=== PATIENT | female | born 2000 | race Caucasian/White ===

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

== ENCOUNTER 2019-05-14 18:57 | Emergency (ER) | payer OTHER ==
[2019-05-14 19:11] VITALS: BP 130/75; PULSE 96; TEMP 98.5; BMI 32.3
--- NOTE | 2019-05-14 20:11 | PDOC ---
History of Present Illness - General Chief Complaint: Pain Stated Complaint: FINGER INJURY Time Seen by Provider: 05/14/19 20:06 - History of Present Illness Initial Comments: 05/14/19 20:09 2-month gravid 18-year-old female with left thumb numbness x1 hour Past History - Past Medical History Allergies/Adverse Reactions: Allergies Allergy/AdvReac Type Severity Reaction Status Date / Time No Known Allergies Allergy Verified 01/01/18 01:32 COPD: No - Psycho Social/Smoking Cessation Hx Smoking History: Never smoked Have you smoked in the past 12 months: No Hx Alcohol Use: No Drug/Substance Use Hx: No Review of Systems - Review of Systems Neurological: Yes: See HPI *Physical Exam - Vital Signs Last Vital Signs Temp Pulse Resp BP Pulse Ox 98.5 F 96 H 19 130/75 98 05/14/19 19:08 05/14/19 19:08 05/14/19 19:08 05/14/19 19:08 05/14/19 19:08 - Physical Exam 05/14/19 20:10 Left thumb skin color and temperature normal range of motion is full and nonpainful no tenderness. 5 out of 5 strength bilateral upper extremities without gross sensorimotor deficits negative Spurling maneuver negative Tinel sign at the elbow and wrist neurovascular intact. Medical Decision Making - Medical Decision Making 05/14/19 20:10 Mostly likely a cervical radicular symptom. Recommended use of Tylenol for pain follow-up with [facility] Discharge - Discharge Information Problems reviewed: Yes Clinical Impression/Diagnosis: Numbness and tingling of left thumb Condition: Stable Disposition: HOME - Admission No - Follow up/Referral - Patient Discharge Instructions Additional Instructions: Tylenol for pain. Follow-up with your [facility] in 1 to 2 days without fail for further evaluation and treatment options or return to the emergency room should symptoms worsen. - Post Discharge Activity
== END 2019-05-14 20:14 | disposition home or self-care (01) ==
LOC: JERFT 18:57
DX: R20.0 Anesthesia of skin (principal)
CPT/HCPCS: 99282-25

== ENCOUNTER 2019-11-07 15:25 | Emergency (ER) | payer OTHER ==
[2019-11-07 15:34] VITALS: BMI 77.2
--- NOTE | 2019-11-07 15:35 | PDOC ---
Rapid Medical Evaluation Time Seen by Provider: 11/07/19 15:30 Medical Evaluation: Allergies Allergy/AdvReac Type Severity Reaction Status Date / Time No Known Allergies Allergy Verified 01/01/18 01:32 11/07/19 15:31 CC: urinary dribbling x 1 month, had u/s done 2 weeks ago and amniotic fluid intact Exam: lower abd tenderness , vss Plan: ua u cx, then to l&d Discharge Disposition - Diagnosis Urinary frequency - Referrals - Patient Instructions - Post Discharge Activity
[2019-11-07 18:07] LABS: EPI CELLS >36 /uL (0-25.1); HYALINE CASTS 6 /uL (0-3.1); URINE APPEARANCE CLOUDY; URINE BACTERIA 4727 /uL (0-1359); URINE BILIRUBIN NEGATIVE (NEGATIVE); URINE COLOR YELLOW; URINE GLUCOSE (UA) NEGATIVE (NEGATIVE); URINE KETONE NEGATIVE (NEGATIVE); URINE LEUK ESTERASE TRACE (NEGATIVE); URINE NITRITE NEGATIVE (NEGATIVE); URINE PROTEIN NEGATIVE (NEGATIVE); URINE RBC 7 /uL (0-23.9); URINE UROBILINOGEN 0.2 mg/dL (0.2-1.0); URINE WBC 73 /uL (0-25.8)
--- NOTE | 2019-11-07 19:08 | PD.OB.PROG ---
Past Medical History - Primary Care Physician PCP:: Nunu Santa Documenting Provider Type: Attending - Admission Chief Complaint: 18 yrs edc by dates 12/20/19, edc by sono 12/16/19 34 weeks gestation c/o urinary symptoms , severe for past 2 days . C/O burning urination, pain , while urinating . frequent urination. n/o c/o fever, or vomiting, nausea sometimes History of Present Illness: pnc at 1, , rand jones . 05/12/19 pane O Neg , Hbsag neg, Hep c nr, rubella immune, varicella immune, measles immune, hiv neg , sickle neg GC neg, CT pos , Uc/s no growth pt was treated for Chlamydia , Repeat test as per pt was neg US 09/27/19 28.4 wks, vx, marshall 14.3, efw 2'9" (19 %tile) , reviewed . edc assigned 12/16/19 . 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 Weeks Gestation by Dates: 34 ...EDC by Dates: 12/20/19 ...EDC by Sono: 12/16/19 (34.4 weeks by US ) Heme/Onc: Denies/None Infectious Disease: Denies/None, STD's (h/o chlamydia pos in treated) Psych: Denies/None Musculoskeletal: Denies/None Rheumatology: Denies/None ENT: Denies/None Endocrine: Denies/None Dermatology: Denies/None - Past Surgical History Additional Surgical History: Rt knee surgery at age 11yrs - Smoking History Smoking history: Never smoked Have you smoked in the past 12 months: No - Alcohol/Substance Use Hx Alcohol Use: No History of Substance Use: reports: Marijuana (stopped when she knew she was .) - Social History History of Recent Travel: No Physical Exam - Obstetrical Vital Signs: Vital Signs Temperature 98.4 F 11/07/19 15:32 Pulse Rate 94 H 11/07/19 15:32 Respiratory Rate 18 11/07/19 15:32 Blood Pressure 140/74 11/07/19 15:32 O2 Sat by Pulse Oximetry (%) 98 11/07/19 15:32 Constitutional: Yes: Well Nourished, No Distress Eyes: Yes: WNL HENT: Yes: WNL Neck: Yes: WNL Cardiovascular: Yes: WNL Lungs: Clear to auscultation Breast(s): Yes: Other (not examined) - Abdominal Exam/OB Fundal Height: 34 (suprapubic tenderness, no cva tenderness) Number of Fetuses: Single Presentation: Vertex Contractions: No Heart Rate (range): 130 Heart Rate Location: Midline Category: I Accelerations: Non-Uniform Decelerations: None - Vaginal Exam/OB Vaginal Exam Deferred: Yes Vaginal Bleeding: No Dilatation (cm): close Effacement (%): unefface Amniotic Membrane Status: Intact Presentation: Vertex/Position Station: -3 - Physical Exam Musculoskeletal: Yes: WNL Extremities: Yes: WNL. No: Calf Tenderness Edema: Yes Edema: LLE: 1+, RLE: 1+ Integumentary: Yes: Tattoos Deep Tendon Reflex Grade: Normal +2 Psychiatric: Yes: WNL - Labs Lab Results: Laboratory Tests 11/07/19 15:55 Urine Color Yellow Urine Appearance Cloudy Urine pH 8.[address] 1.016 Urine Protein Negative Urine Glucose (UA) Negative Urine Ketones Negative Urine Blood Negative Urine Nitrite Negative Urine Bilirubin Negative Urine Urobilinogen 0.2 Ur Leukocyte Esterase Trace Urine WBC (Auto) 73 Urine RBC (Auto) 7 Urine Casts (Auto) 6 U Epithel Cells (Auto) >36 Urine Bacteria (Auto) 4727 Problem List - Problems (1) with 34 completed weeks gestation Code(s): Z3A.34 - 34 WEEKS GESTATION OF (2) UTI (urinary tract infection) Code(s): N39.0 - URINARY TRACT INFECTION, SITE NOT SPECIFIED Assessment/Plan 19 yrs 34 weeks GA, symptomatic with UTI , U/A clean catch suggestive of UTI Plan IVPB ancef 2 gm . urine c/s sent Po keflex 500 mg bid x 7days po plenty fluids keep f/u appt in the clinic next wk, f/u on uc/s
[2019-11-07] MEDS ORDERED: CEFAZOLIN 2 GM/D5W 2 GM/50 ML ML IVPB ONE (19:33)
[2019-11-07 20:31] VITALS: BP 119/68; PULSE 87; TEMP 97.7
== END 2019-11-07 20:45 | disposition home or self-care (01) ==
LOC: JER 15:25
PROC: 3E033GC Introduction of Other Therapeutic Substance into Peripheral Vein, Percutaneous Approach (ICD-10-PCS; principal; 2019-11-07)
DX: R35.0 Frequency of micturition (principal)
CPT/HCPCS: 81003; 87086; 99284-25

== ENCOUNTER 2019-12-17 18:05 | Inpatient (IN) | payer OTHER ==
[2019-12-17 20:50] LABS: BASO % 0.1 % (0-2.0); EOS % 0.9 % (0-4.5); HEMATOCRIT 39.1 % (32.4-45.2); HEMOGLOBIN 13.1 GM/dL (10.7-15.3); LYMPH % 17.7 % (8-40); MCH 30.9 pg (25.7-33.7); MCHC 33.5 g/dl (32.0-36.0); MEAN CELL VOLUME 92.2 fl (80-96); MONO % 6.5 % (3.8-10.2); NEUT % 74.8 % (42.8-82.8); PLATELET COUNT 256 K/MM3 (134-434); RBC 4.24 M/mm3 (3.60-5.2); WHITE BLOOD COUNT 11.4 K/mm3 (4.0-10.0)
[2019-12-17 21:00] LABS: INR 0.93 (0.83-1.09)
[2019-12-17 21:03] LABS: ACTIVATED PTT 31.7 SECONDS (25.2-36.5)
[2019-12-17 21:05] LABS: COCAINE, UR NEGATIVE ng/ml (CUTOFF=300); OPIATES, URI NEGATIVE ng/ml (CUTOFF=300); PHENCYCLIDINE,URINE NEGATIVE ng/ml (CUTOFF=25); URINE BARBITURATES NEGATIVE ng/ml (CUTOFF=200)
[2019-12-17 21:08] VITALS: BMI 35.8
[2019-12-17 21:10] LABS: METHADONE, UR NEGATIVE ng/ml (CUTOFF=300); URINE AMPHETAMINES NEGATIVE ng/ml (CUTOFF=500); URINE BENZODIAZEPINES NEGATIVE ng/ml (CUTOFF=200)
[2019-12-17 21:18] LABS: CREATININE 0.6 mg/dL (0.55-1.3); POTASSIUM 4.2 mmol/L (3.5-5.1)
[2019-12-17] MEDS ORDERED: OXYTOCIN 30 UNITS in 0.9% NS 30 UNIT/500 ML INFUS.BAG IVPB SCH (21:30)
[2019-12-17] MEDS ORDERED: PROMETHAZINE HCL 25 MG/1 ML VIAL IVPB ONE (21:30)
[2019-12-17] MEDS ORDERED: DEXTROSE 5%-LACTATED RINGERS 1,000 ML IV SCH (21:30)
[2019-12-17] MEDS ORDERED: BUTORPHANOL TARTRATE 1 MG/ML VIAL IVPB ONE (21:30)
[2019-12-17] MEDS ORDERED: OXYTOCIN 30 UNITS in 0.9% NS 30 UNIT/500 ML INFUS.BAG IVPB ONE (21:49)
[2019-12-18] MEDS ORDERED: ACETAMINOPHEN 325 MG TABLET (FP) PO ONE (02:00)
[2019-12-18] MEDS ORDERED: FENTANYL/BUPIVACAINE/NS/PF - PCEA - 50 ML DISP.SYRIN EP ONE ×4 (02:06→13:42)
[2019-12-18] MEDS ORDERED: PCA PUMP NR ONE (02:07)
[2019-12-18] MEDS ORDERED: BUPIVACAINE HCL/PF 0.25% (2.5MG/ML) 10 ML VIAL ONE (02:14)
[2019-12-18] MEDS ORDERED: NALOXONE HCL 0.4 MG/ML VIAL IVPUSH PRN (02:53)
[2019-12-18] MEDS ORDERED: FENTANYL/BUPIVACAINE/NS/PF - PCEA - 50 ML DISP.SYRIN EP SCH (03:00)
[2019-12-18] MEDS ORDERED: ELECTROLYTE-148 SOLN 1,000 ML IV SCH (06:00)
[2019-12-18 07:12] LABS: POC NITRAZINE NEG
--- NOTE | 2019-12-18 08:10 | HP ---
Past Medical History - Primary Care Physician PCP:: Willard Cheney - Admission Chief Complaint: 40 weeks, rom, labor History of Present Illness: 19 yo f 40.1 weeks, with leaking fluid since 530 pm 10/16 . mild irregular contraction, no fever, no bleeding, cx 2 cm , 80 vx -2 mr, fhr cat 1, irregular contraction History Source: Patient Limitations to Obtaining History: No Limitations - Past Medical History ...: 1 ...Para: 0 ...Term: 0 ...: 0 ...Spon : 0 ...Induced : 0 ...Living Children: 0 ...Multiple Gestation: 0 ...LMP: 03/11/19 ... Weeks Gestation by Dates: 40.1 ...EDC by Dates: 12/16/19 ...EDC by Sono: 12/16/19 - Past Surgical History Hx Myomectomy: No Hx Transabdominal Cerclage: No - Smoking History Smoking history: Never smoked Have you smoked in the past 12 months: No - Alcohol/Substance Use Hx Alcohol Use: No History of Substance Use: reports: Marijuana (stopped when she knew she was .) - Social History History of Recent Travel: No Home Medications - Allergies Allergies/Adverse Reactions: Allergies Allergy/AdvReac Type Severity Reaction Status Date / Time No Known Allergies Allergy Verified 12/17/19 20:35 - Home Medications Home Medications: Ambulatory Orders Pnv No.95/Ferrous Fum/Folic AC [ Formula] 1 each PO DAILY 12/16/19 Review of Systems - Review of Systems Constitutional: reports: No Symptoms Eyes: reports: No Symptoms HENT: reports: No Symptoms Neck: reports: No Symptoms Cardiovascular: reports: No Symptoms Respiratory: reports: No Symptoms Gastrointestinal: reports: No Symptoms Genitourinary: reports: No Symptoms Breasts: reports: No Symptoms Reported Musculoskeletal: reports: No Symptoms Integumentary: reports: No Symptoms Neurological: reports: No Symptoms Endocrine: reports: No Symptoms Hematology/Lymphatic: reports: No Symptoms Psychiatric: reports: No Symptoms Physical Exam - Maternity Vital Signs: Vital Signs Temperature 98.1 F 12/18/19 07:00 Pulse Rate 88 12/18/19 07:45 Respiratory Rate 16 12/18/19 07:45 Blood Pressure 120/73 12/18/19 07:45 O2 Sat by Pulse Oximetry (%) 100 12/18/19 07:45 Constitutional: Yes: Well Nourished, No Distress, Calm Eyes: Yes: WNL, Conjunctiva Clear, EOM Intact HENT: Yes: WNL, Atraumatic, Normocephalic Neck: Yes: WNL, Supple, Trachea Midline Cardiovascular: Yes: WNL, Regular Rate and Rhythm Breast(s): Yes: WNL - Abdominal Exam/OB Fundal Height: 40 Number of Fetuses: Single Presentation: Vertex Contractions: Yes Regularity: Irregular Intensity: Mild/Mod Monitor Mode: External Heart Rate Location: [facility] Category: I Accelerations: Non-Uniform Decelerations: None - Vaginal Exam/OB Vaginal Bleeding: No Speculum Exam: No Dilatation (cm): 2 Effacement (%): 80 Amniotic Membrane Status: Leaking Nitrazine Test: Positive Presentation: Vertex/Position Station: -2 - Physical Exam Musculoskeletal: Yes: WNL Extremities: Yes: WNL Edema: Yes Edema: LLE: Trace, RLE: Trace Deep Tendon Reflex Grade: Normal +2 Psychiatric: Yes: WNL - Labs Lab Results: CBC, BMP 12/17/19 20:05 12/17/19 20:05 Hemorrhage Risk Assessment - Risk Factors Medium Risk Factors: Yes: None High Risk Factors: Yes: None Risk Score: 1 Risk Level: Medium Risk Problem List - Problems (1) Post term over 40 weeks Code(s): O48.0 - POST-TERM (2) Amniotic fluid leaking Code(s): O42.90 - TAQUERIA ROM, 7TH0 BETW RUPT & ONST LABR, UNSP WEEKS OF GEST Assessment/Plan admit, GBS negative FHM , pitocin discussed , pain management
--- NOTE | 2019-12-18 08:12 | PN ---
Progress Note (short form) - Note Progress Note: cd 5 cm 80 vx -1, fhr cat [address] Last Vital Signs Temp Pulse Resp BP Pulse Ox 98.1 F 88 16 120/73 100 12/18/19 07:00 12/18/19 07:45 12/18/19 07:45 12/18/19 07:45 12/18/19 07:45 plan start antibiotics 18 hrs post rupture cont , pitocin expect vaginal delivery Problem List - Problems (1) Post term over 40 weeks Code(s): O48.0 - POST-TERM (2) Amniotic fluid leaking Code(s): O42.90 - TAQUERIA ROM, 7TH0 BETW RUPT & ONST LABR, UNSP WEEKS OF GEST
[2019-12-18] MEDS ORDERED: AMPICILLIN - 2 GM in SODIUM CHLORIDE 100 ML IVPB ONE (13:00)
[2019-12-18] MEDS ORDERED: AMPICILLIN SODIUM 2 GM VIAL ONE (13:19)
[2019-12-18] MEDS ORDERED: LIDOCAINE HCL 1% PRESERVATIVE FREE - 30ML VIAL ONE (15:06)
[2019-12-18] MEDS ORDERED: OXYTOCIN 20 UNITS in 0.9% NS 20 UNIT/1,000 ML INFUS.BAG IV ONE (15:06)
[2019-12-18] MEDS ORDERED: OXYTOCIN 20 UNITS in 0.9% NS 20 UNIT/1,000 ML INFUS.BAG IV SCH (16:25)
[2019-12-18] MEDS ORDERED: IBUPROFEN 600 MG TABLET (FP) PO ONE (16:35)
[2019-12-18] MEDS ORDERED: ACETAMINOPHEN 325 MG TABLET (FP) ONE (16:35)
[2019-12-18] MEDS: ACETAMINOPHEN 325 MG TABLET (FP) PO PRN ×2 (16:40→22:50)
[2019-12-18] MEDS: IBUPROFEN 600 MG TABLET (FP) PO PRN ×2 (16:40→22:50)
[2019-12-18 17:09] LABS: CORD BASE EXCESS -9.3 mmol/L (0-2); CORD PCO2 40.2 mmHg (30-78); CORD pH 7.252 (7.14-7.44)
[2019-12-18 17:10] LABS: CORD HCO3 17.3 mmHg (20-29)
[2019-12-18 17:11] LABS: CORD pH 7.095 (7.14-7.44)
[2019-12-18 17:12] LABS: CORD BASE EXCESS -12.1 mmol/L (0-2); CORD HCO3 18.6 mmHg (20-29); CORD PCO2 62.1 mmHg (30-78)
[2019-12-18] MEDS: AMPICILLIN - 1 GM in SODIUM CHLORIDE 100 ML IVPB SCH ×2 (17:39→22:49)
[2019-12-18] MEDS ORDERED: WITCH HAZEL 50% (TUCKS) 40 PAD/JAR PAD TP PRN (18:00)
[2019-12-18] MEDS ORDERED: BENZOCAINE 20% 57 GM BOTTLE TP PRN (18:00)
[2019-12-18] MEDS ORDERED: BENZOCAINE 28 GM HEMORRHOIDAL OINTMENT TP PRN (18:00)
[2019-12-18] MEDS ORDERED: METHYLERGONOVINE MALEATE 0.2 MG/1 ML AMP IM PRN (18:00)
[2019-12-18] MEDS ORDERED: BISACODYL 10 MG SUPP.RECT RC PRN (18:00)
[2019-12-19] MEDS: ACETAMINOPHEN 325 MG TABLET (FP) PO PRN ×2 (06:13→17:23)
[2019-12-19] MEDS: IBUPROFEN 600 MG TABLET (FP) PO PRN ×2 (06:14→17:24)
--- NOTE | 2019-12-19 07:37 | PN ---
Post Progress Note - Subjective Subjective: Ambulating, tolerating PO lochia decreased, breast feeding, voiding Post Day: 1 Type of Delivery: Vital Signs: Vital Signs Temperature 97.7 F 12/19/19 06:05 Pulse Rate 93 H 12/19/19 06:05 Respiratory Rate 20 12/19/19 06:05 Blood Pressure 115/70 12/19/19 06:05 O2 Sat by Pulse Oximetry (%) 99 12/18/19 18:45 Uterus: Yes: Fundus Firm Abdomen/GI: Yes: Abdomen soft Lochia: Yes: Serosa Lochia, amount: Moderate Extremities: Yes: Calves non-tender Perineum: Yes: Intact Activity: Ambulating - Labs Labs: CBC WBC 11.4 K/mm3 (4.0-10.0) H 12/17/19 20:05 RBC 4.24 M/mm3 (3.60-5.2) 12/17/19 20:05 Hgb 13.1 GM/dL (10.7-15.3) 12/17/19 20:05 Hct 39.1 % (32.4-45.2) 12/17/19 20:05 MCV 92.2 fl (80-96) 12/17/19 20:05 MCH 30.9 pg (25.7-33.7) 12/17/19 20:05 MCHC 33.5 g/dl (32.0-36.0) 12/17/19 20:05 RDW 14.0 % (11.6-15.6) 12/17/19 20:05 Plt Count 256 K/MM3 (134-434) 12/17/19 20:05 MPV 8.0 fl (7.5-11.1) 12/17/19 20:05 Absolute Neuts (auto) 8.5 K/mm3 (1.5-8.0) H 12/17/19 20:05 Neutrophils % 74.8 % (42.8-82.8) D 12/17/19 20:05 Lymphocytes % 17.7 % (8-40) D 12/17/19 20:05 Monocytes % 6.5 % (3.8-10.2) 12/17/19 20:05 Eosinophils % 0.9 % (0-4.5) 08/16/20 20:05 Basophils % 0.1 % (0-2.0) 12/17/19 20:05 Nucleated RBC % 0 % (0-0) 12/17/19 20:05 Assessment/Plan 19 y/o female on PPD # 1 S/P VD yesterday evening -Continue PP/post-op care -Anticipate D/C home tomorrow
--- NOTE | 2019-12-19 07:54 | PN ---
Delivery - Delivery Vaginal Delivery: Spontaneous (cx full ,head delivered GRAHAM , cord around neck once reduced , ant and post. shoulder with no difficulty, live baby girl 9/9 placenta complete, spontaneous, no laceration, EBL 500 cc , no complication) Type of Anesthesia: Epidural Episiotomy/Laceration: None EBL (cc): 500 Delivery, Single - Stages of Labor Date 1st Stage Initiatied: 12/18/19 Time 1st Stage Initiated: 02:40 Date 2nd Stage Initiated: 12/18/19 Time 2nd Stage Initiated: 14:55 Date of Delivery: 12/18/19 Time of Delivery: 15:48 Time Placenta Delivered: 15:55 - Condition of Infant [employer] Supervisor/Discount Clerk Present: No Infant Gender: Female Weight: 7 lb 5 oz Position: Left, OA Total Hours ROM (Hrs/Mins): 22:48 - 1 Minute Total Score: 9 5 Minutes Total Score: 9 - [place] Feeding Plan Initial Plan: Elected not to breastfeed exclusively throughout hospitalization
[2019-12-19] MEDS ORDERED: FERROUS SO4 325 MG TABLET (FP) PO SCH (08:00)
[2019-12-19] MEDS ORDERED: DIPHTH,PERTUSS(ACELL),TET 0.5 ML DISP.SYRIN IM ONE (10:00)
[2019-12-19] MEDS ORDERED: PRENATAL VITAMINS W/ FOLIC ACID TABLET (FP) PO SCH (10:00)
[2019-12-19] MEDS ORDERED: METHYLERGONOVINE MALEATE 0.2 MG/1 ML AMP IM PRN (10:18)
[2019-12-19] MEDS ORDERED: WITCH HAZEL 50% (TUCKS) 40 PAD/JAR PAD TP PRN (10:18)
[2019-12-19] MEDS ORDERED: BENZOCAINE 20% 57 GM BOTTLE TP PRN ×2 (10:18→10:26)
[2019-12-19] MEDS ORDERED: BISACODYL 10 MG SUPP.RECT RC PRN (10:18)
[2019-12-19] MEDS ORDERED: BENZOCAINE 28 GM HEMORRHOIDAL OINTMENT TP PRN (10:18)
[2019-12-19 11:22] LABS: BASO % 0.4 % (0-2.0); EOS % 1.1 % (0-4.5); HEMATOCRIT 33.1 % (32.4-45.2); MCH 30.6 pg (25.7-33.7); MCHC 33.3 g/dl (32.0-36.0); MEAN CELL VOLUME 91.9 fl (80-96); MEAN PLT VOLUME 7.6 fl (7.5-11.1); MONO % 6.1 % (3.8-10.2); NEUT % 79.4 % (42.8-82.8); PLATELET COUNT 236 K/MM3 (134-434); RDW 13.7 % (11.6-15.6); WHITE BLOOD COUNT 15.5 K/mm3 (4.0-10.0)
[2019-12-19] MEDS ORDERED: SENNOSIDES/DOCUSATE COMBO (SENNA PLUS) TABLET (UD) PO PRN (18:00)
[2019-12-20] MEDS: FERROUS SO4 325 MG TABLET (FP) PO SCH ×2 (00:34→11:22)
[2019-12-20] MEDS: ACETAMINOPHEN 325 MG TABLET (FP) PO PRN (00:34)
[2019-12-20] MEDS: IBUPROFEN 600 MG TABLET (FP) PO PRN (00:35)
--- NOTE | 2019-12-20 08:03 | DS ---
Physical Exam-INVENTORY ANALYST Vital Signs: Vital Signs Temperature 99 F 12/19/19 22:00 Pulse Rate 100 H 12/19/19 22:00 Respiratory Rate 20 12/19/19 22:00 Blood Pressure 134/76 12/19/19 22:00 O2 Sat by Pulse Oximetry (%) 99 12/18/19 18:45 Constitutional: Yes: Well Nourished Eyes: Yes: WNL HENT: Yes: WNL Neck: Yes: WNL Cardiovascular: Yes: WNL Respiratory: Yes: WNL Gastrointestinal: Yes: WNL ....Post : Yes: Uterus firm, Uterus non-tender, Moderate lochia rubra (perineum intact) Breast(s): Yes: WNL (not engorged breast feeding) Musculoskeletal: Yes: WNL Extremities: Yes: WNL. No: Calf Tenderness Edema: LLE: Trace, RLE: Trace Integumentary: Yes: Tattoos Neurological: Yes: WNL, Alert, Oriented ...Motor Strength: WNL Psychiatric: Yes: WNL, Alert, Oriented Labs: CBC, BMP 12/19/19 11:03 12/17/19 20:05 Delivery - Delivery Vaginal Delivery: Spontaneous (cx full ,head delivered GRAHAM , cord around neck once reduced , ant and post. shoulder with no difficulty, live baby girl 9/9 placenta complete, spontaneous, no laceration, EBL 500 cc , no complication) Type of Anesthesia: Epidural Episiotomy/Laceration: None EBL (cc): 500 Delivery, Single - Stages of Labor Date 1st Stage Initiatied: 12/18/19 Time 1st Stage Initiated: 02:40 Date 2nd Stage Initiated: 12/18/19 Time 2nd Stage Initiated: 14:55 Date of Delivery: 12/18/19 Time of Delivery: 15:48 Time Placenta Delivered: 15:55 - Condition of Intake Counselor/Pediatric Occupational Therapist Present: No Gender: Female Weight: 7 lb 5 oz Position: Left, OA Total Hours ROM (Hrs/Mins): 22:48 - 1 Minute Total Score: 9 5 Minutes Total Score: 9 - Feeding Plan Initial Plan: Elected not to breastfeed exclusively throughout hospitalization Remarks - Remarks Remarks: pp course uneventful discharge today Discharge Summary Problems reviewed: Yes Reason For Visit: ADMIT EARLY LABOR Current Active Problems Amniotic fluid leaking (Acute) Normal spontaneous vaginal delivery (Acute) Post term over 40 weeks (Acute) Condition: Stable - Instructions Diet, Activity, Other Instructions: Discharge Instructions * Out of Bed * * Regular Diet * Morena Care * Avoid sex for 6 weeks * RTC 3 weeks for pp visit If you experience excessive bleeding or fever over 101 degrees, call doctor, the clinic or go to the Emergency Room. Referrals: Willard Cheney MD [Staff Physician] - Disposition: HOME - Home Medications Comprehensive Discharge Medication List: Ambulatory Orders Pnv No.95/Ferrous Fum/Folic AC [ Formula Tablet] 1 each PO DAILY 12/16/19 Acetaminophen [Tylenol .Regular Strength -] 650 mg PO Q3H PRN tablet 12/20/19 Acetaminophen [Tylenol .Regular Strength -] 650 mg PO Q3H PRN tablet 12/20/19 Benzocaine [Americaine 20% [place] -] 1 spray TP PRN PRN bottle 12/20/19 Ferrous Sulfate [Feosol] 325 mg PO DAILY tab 12/20/19 Ferrous Sulfate [Feosol] 325 mg PO DAILY@0800 tab 12/20/19 Ibuprofen [Motrin -] 200 mg PO Q4H PRN tablet 12/20/19 Ibuprofen [Motrin -] 200 mg PO Q4H PRN tablet 12/20/19 Vitamins (Sjr) - 1 tab PO DAILY tablet 12/20/19 Vitamins (Sjr) - 1 tab PO DAILY #0 tablet 12/20/19
[2019-12-20] MEDS ORDERED: PRENATAL VITAMINS W/ FOLIC ACID TABLET (FP) PO SCH (10:00)
[2019-12-20 11:42] VITALS: BP 125/80; PULSE 90; TEMP 98
[2019-12-20] MEDS ORDERED: SENNOSIDES/DOCUSATE COMBO (SENNA PLUS) TABLET (UD) PO PRN (22:00)
== END 2019-12-20 12:00 | disposition home or self-care (01) | DRG 560 ==
LOC: JDEL 18:05 → JLDR 18:43 → J3W 12-18 19:34
PROVIDERS: ADMIT Obstetrics & Gynecology; ATTEND Obstetrics & Gynecology
PROC: 10E0XZZ Delivery of Products of Conception, External Approach (ICD-10-PCS; principal; 2019-12-18)
DX: O48.0 Post-term pregnancy (principal); O42.02 Full-term premature rupture of membranes, onset of labor within 24 hours of rupture; Z3A.40 40 weeks gestation of pregnancy; Z37.0 Single live birth; O69.81X0 Labor and delivery complicated by cord around neck, without compression, not applicable or unspecified; F12.11 Cannabis abuse, in remission
CPT/HCPCS: 36415; 36600; 59409; 80048; 80307; 82803; 83986-QW; 85025; 85461; 85610; 85730; 86780; 86850; 86870; 86900; 86901; 86902; 86999; 90715; U0003

== ENCOUNTER 2021-02-17 20:48 | Emergency (ER) | payer BC, OTHER ==
[2021-02-17 20:55] VITALS: BP 128/86; PULSE 89; TEMP 98.9; BMI 31.1
[2021-02-17 22:15] LABS: BASO % 0.8 % (0-2.0); EOS % 2.1 % (0-4.5); HEMOGLOBIN 13.5 GM/dL (10.7-15.3); MCH 30.5 pg (25.7-33.7); MCHC 34.6 g/dl (32.0-36.0); MEAN CELL VOLUME 88.2 fl (80-96); MONO % 6.1 % (3.8-10.2); PLATELET COUNT 309 10^3/uL (134-434); RBC 4.42 M/mm3 (3.60-5.2); RDW 13.4 % (11.6-15.6); WHITE BLOOD COUNT 9.9 K/mm3 (4.0-10.0)
[2021-02-17 22:30] LABS: CHLORIDE 108 mmol/L (98-107); SODIUM 141 mmol/L (136-145)
[2021-02-17 22:31] LABS: ANION GAP 8 MMOL/L (8-16); BLOOD UREA NITROGEN 15.8 mg/dL (7-18); CALCIUM 9.4 mg/dL (8.5-10.1); CO2 24 mmol/L (21-32)
[2021-02-17 22:32] LABS: GLUCOSE,RANDOM 84 mg/dL (74-106)
[2021-02-17 22:35] LABS: CREATININE 0.7 mg/dL (0.55-1.3)
[2021-02-17] MEDS ORDERED: ACETAMINOPHEN 500 MG TABLET (FP) PO ONE (23:44)
[2021-02-17] MEDS ORDERED: ACETAMINOPHEN 500 MG TABLET (FP) ONE (23:51)
== END 2021-02-18 00:31 | disposition home or self-care (01) ==
LOC: JERFT 20:48
DX: R51.9 Headache, unspecified (principal)
CPT/HCPCS: 36415; 70496-TC; 70498-TC; 80048; 84484; 84703; 85025; 93005; 93010; 99285-25; Q9967

== ENCOUNTER 2021-09-30 14:38 | Emergency (ER) | payer BC ==
[2021-09-30 14:46] VITALS: BP 131/86; PULSE 100; TEMP 98.3; BMI 31.6
[2021-09-30] MEDS ORDERED: SODIUM CHLORIDE 1,000 ML IV STA (16:37)
[2021-09-30] MEDS ORDERED: ONDANSETRON 4 MG/2 ML VIAL IVPUSH ONE (16:37)
[2021-09-30] MEDS ORDERED: morphine CARPU-JECT 4 MG/1 ML DISP.SYRIN IVPUSH ONE (16:37)
[2021-09-30] MEDS ORDERED: morphine SULFATE 4 MG/ML VIAL ONE (16:46)
[2021-09-30] MEDS ORDERED: ONDANSETRON 4 MG/2 ML VIAL ONE (16:47)
[2021-09-30 17:56] LABS: BASO % 0.4 % (0-2.0); HEMATOCRIT 39.7 % (32.4-45.2); HEMOGLOBIN 13.4 GM/dL (10.7-15.3); LYMPH % 34.9 % (8-40); MCH 29.5 pg (25.7-33.7); MCHC 33.7 g/dl (32.0-36.0); MEAN CELL VOLUME 87.5 fl (80-96); MEAN PLT VOLUME 7.3 fl (7.5-11.1); MONO % 10.8 % (3.8-10.2); NEUT % 51.9 % (42.8-82.8); PLATELET COUNT 317 10^3/uL (134-434); RBC 4.53 M/mm3 (3.60-5.2); RDW 14.3 % (11.6-15.6); WHITE BLOOD COUNT 6.3 K/mm3 (4.0-10.0)
[2021-09-30 18:11] LABS: BLOOD UREA NITROGEN 8.8 mg/dL (7-18)
[2021-09-30 18:12] LABS: ALBUMIN 3.9 g/dl (3.4-5.0)
[2021-09-30 18:14] LABS: CREATININE 0.8 mg/dL (0.55-1.3)
[2021-09-30 18:16] LABS: BILIRUBIN,TOTAL 0.5 mg/dL (0.2-1); TOT PROT 7.2 g/dl (6.4-8.2)
[2021-09-30 19:27] LABS: URINE APPEARANCE CLEAR; URINE BILIRUBIN NEGATIVE (NEGATIVE); URINE COLOR YELLOW; URINE GLUCOSE (UA) NEGATIVE (NEGATIVE); URINE KETONE TRACE (NEGATIVE); URINE LEUK ESTERASE NEGATIVE (NEGATIVE); URINE NITRITE NEGATIVE (NEGATIVE); URINE PROTEIN TRACE (NEGATIVE); URINE UROBILINOGEN 0.2 mg/dL (0.2-1.0)
[2021-09-30 19:29] LABS: HCG,QUALITATIVE URINE Negative
== END 2021-09-30 21:57 | disposition home or self-care (01) ==
LOC: JER 14:38
PROC: 3E033NZ Introduction of Analgesics, Hypnotics, Sedatives into Peripheral Vein, Percutaneous Approach (ICD-10-PCS; principal; 2021-09-30)
PROC: 3E033GC Introduction of Other Therapeutic Substance into Peripheral Vein, Percutaneous Approach (ICD-10-PCS; 2021-09-30)
PROC: 3E0337Z Introduction of Electrolytic and Water Balance Substance into Peripheral Vein, Percutaneous Approach (ICD-10-PCS; 2021-09-30)
DX: R19.7 Diarrhea, unspecified (principal)
CPT/HCPCS: 36415; 74176-TC; 80053; 81003; 83690; 84703; 85025; 86708; 87086; 99284-25

== ENCOUNTER 2022-04-14 11:50 | Emergency (ER) | payer BC, OTHER ==
[2022-04-14 11:56] VITALS: BP 150/85; PULSE 115; RESP 18; TEMP 99.2; BMI 31.8
[2022-04-14 14:47] LABS: BASO % 0.4 % (0-2.0); HEMOGLOBIN 13.9 GM/dL (10.7-15.3); LYMPH % 9.9 % (8-40); MCH 30.1 pg (25.7-33.7); MCHC 33.9 g/dl (32.0-36.0); MEAN CELL VOLUME 88.9 fl (80-96); MEAN PLT VOLUME 8.2 fl (7.5-11.1); NEUT % 83.7 % (42.8-82.8); PLATELET COUNT 334 10^3/uL (134-434); RBC 4.62 M/mm3 (3.60-5.2); RDW 13.4 % (11.6-15.6); WHITE BLOOD COUNT 13.8 K/mm3 (4.0-10.0)
[2022-04-14] MEDS ORDERED: KETOROLAC TROMETHAMINE 30 MG/1 ML VIAL IVPUSH ONE (14:56)
[2022-04-14 14:59] LABS: CALCIUM 9.3 mg/dL (8.5-10.1)
[2022-04-14 15:03] LABS: CREATININE 0.7 mg/dL (0.55-1.3)
[2022-04-14 15:04] LABS: BILIRUBIN,TOTAL 1.4 mg/dL (0.2-1)
[2022-04-14 15:05] LABS: TOT PROT 7.8 g/dl (6.4-8.2)
[2022-04-14] MEDS ORDERED: KETOROLAC TROMETHAMINE 30 MG/1 ML VIAL ONE (15:10)
[2022-04-14] MEDS ORDERED: LORATADINE 10 MG TABLET PO ONE (16:34)
[2022-04-14] MEDS ORDERED: LORATADINE 10 MG TABLET ONE (16:55)
[2022-04-14] MEDS ORDERED: ACETAMINOPHEN 500 MG TABLET (FP) PO ONE (18:52)
[2022-04-14] MEDS ORDERED: ACETAMINOPHEN 500 MG TABLET (FP) ONE (18:55)
== END 2022-04-14 19:01 | disposition home or self-care (01) ==
LOC: JER 11:50
PROC: 3E033GC Introduction of Other Therapeutic Substance into Peripheral Vein, Percutaneous Approach (ICD-10-PCS; principal; 2022-04-14)
DX: J09.X2 Influenza due to identified novel influenza A virus with other respiratory manifestations (principal)
CPT/HCPCS: 0241U-QW; 36415; 71046-TC-FY; 80053; 84703; 85025; 85379; 99284-25